=== PATIENT | male | born 1995 | race Caucasian/White ===

== ENCOUNTER 2019-09-20 10:17 | Emergency (ER) | payer OTHER ==
[2019-09-20] MEDS ORDERED: ETOMIDATE INJ/PF 20 MG/10 ML SDV IV ONE (11:28)
--- NOTE | 2019-09-20 11:43 | RADIOLOGY REPORT (SQ) ---
EXAM DESCRIPTION: KUB/ABDOMEN (SINGLE VIEW) IMAGES COMPLETED DATE/TIME: 09/20/2019 11:34 am REASON FOR STUDY: rectal fb COMPARISON: None. NUMBER OF VIEWS: One view. TECHNIQUE: Supine radiographic image of the abdomen acquired. LIMITATIONS: None. FINDINGS: BOWEL GAS PATTERN: Normal bowel gas pattern. No dilated loops. CALCIFICATIONS: No suspicious calcifications. SOFT TISSUES: No gross mass or suggestion of organomegaly. HARDWARE: Large electronic foreign object in the rectum and distal sigmoid. BONES: No acute fracture. No worrisome bone lesions. OTHER: No other significant finding. IMPRESSION: LARGE ELECTRONIC FOREIGN OBJECT IN THE RECTUM AND DISTAL SIGMOID. TECHNICAL DOCUMENTATION: JOB ID: [id number] 2010 [employer]- All Rights Reserved Reading location - IP/workstation name: [email or web address]
[2019-09-20] MEDS ORDERED: NORMAL SALINE 1000 ML 1,000 ML IV ONE (12:00)
[2019-09-20 13:57] VITALS: BP 117/58
--- NOTE | 2019-09-20 19:39 | PDOC CONSULTATION ---
Consultation Consult Date: 09/20/19 Provider Consulted: SURGICAL SURGICALIST MD Consult reason:: Rectal foreign body History of Present Illness Patient complains of: Lodged rectal foreign body History of Present Illness: SAAD PORTILLO JR is a 23 year old male seen in consultation at the request of the emergency room physician. Patient reports a foreign body is currently lodged within his rectum, and has been since last night. He has tried to have a bowel movement, however he has been unsuccessful. He has been unsuccessful at extracting the foreign body at home. He presents today for extraction. The patient denies fevers, chills, nausea, vomiting, abdominal pain, chest pain, shortness of breath, dizziness, orthostasis, fatigue, malaise, blurry vision, dizziness, headache. He does report some pain in the rectum, due to the inability of anyone to extract the foreign body to date. His pain is mild, 2 out of 10. It is an ache. It does not radiate. Nothing makes it better or worse. Past Medical History Medical History: None Past Surgical History Past Surgical History: Reports: None Social History Smoking Status: Current Every Day Smoker Hx Recreational Drug Use: No Hx Prescription Drug Abuse: No Family History Family History: None Parental Family History Reviewed: Yes Children Family History Reviewed: Yes Sibling(s) Family History Reviewed.: Yes Medication/Allergy Allergies/Adverse Reactions: No Known Allergies Allergy (Unverified 09/20/19 10:26) Review of Systems Constitutional: ABSENT: anorexia, chills, fatigue Eyes: ABSENT: visual disturbances Ears: ABSENT: hearing changes Nose, Mouth, and Throat: ABSENT: sore throat Cardiovascular: ABSENT: chest pain Respiratory: ABSENT: cough, dyspnea Gastrointestinal: ABSENT: abdominal pain, bloating, hematemesis, hematochezia, melena, nausea, vomiting Genitourinary: ABSENT: dysuria Musculoskeletal: ABSENT: back pain Integumentary: ABSENT: pruritus, rash Neurological: ABSENT: confusion, convulsions, dizziness Psychiatric: ABSENT: anxiety, depression Endocrine: ABSENT: cold intolerance, heat intolerance Hematologic/Lymphatic: ABSENT: easy bleeding, easy bruising Physical Exam Vital Signs: Temp Pulse Resp BP Pulse Ox 99.4 F 85 19 117/58 L 97 09/20/19 14:20 09/20/19 14:20 09/20/19 14:20 09/20/19 14:09/20/19 14:20 Intake & Output 09/19/19 09/20/19 09/21/19 06:59 06:59 06:59 Intake Total 1000 Balance 1000 Weight 98.1 kg General appearance: PRESENT: no acute distress, cooperative. ABSENT: disheveled Head exam: PRESENT: normocephalic Eye exam: PRESENT: EOMI, PERRLA. ABSENT: scleral icterus Mouth exam: PRESENT: moist, neck supple Neck exam: ABSENT: meningismus, tenderness, thyromegaly, tracheal deviation Respiratory exam: PRESENT: unlabored. ABSENT: chest wall tenderness, tachypnea, wheezes Cardiovascular exam: ABSENT: tachycardia GI/Abdominal exam: PRESENT: soft. ABSENT: distended, firm, rebound, rigid, tenderness Rectal exam: PRESENT: tenderness - Mild tenderness with deep inspection., other - Rectal foreign body felt, proximal to the distal valve of Meng. Extremities exam: ABSENT: clubbing Musculoskeletal exam: ABSENT: deformity Neurological exam: PRESENT: alert, awake, oriented to person, oriented to place, oriented to time, oriented to situation, CN II-XII grossly intact Psychiatric exam: ABSENT: agitated, anxious, depressed Focused psych exam: ABSENT: delusional Skin exam: ABSENT: cyanosis, erythema, jaundice Results Impressions: KUB X-Ray 09/20/19 11:04 IMPRESSION: LARGE ELECTRONIC FOREIGN OBJECT IN THE RECTUM AND DISTAL SIGMOID. Assessment & Plan - Diagnosis (1) Rectal foreign body Qualifiers: Encounter type: initial encounter Qualified Code(s): T18.5XXA - Foreign body in anus and rectum, initial encounter Is this a current diagnosis for this admission?: Yes - Plan Summary Plan Summary: This is a 23-year-old male with a rectal foreign body. It is easily palpable on exam, however it is proximal to the last valve of Meng. I believe the patient can safely undergo bedside extraction with conscious sedation. I discussed this with him at length. He is in agreement with the treatment plan. Risks/benefits discussed, informed consent obtained, and all questions answered.
--- NOTE | 2019-09-20 19:42 | Operative Report ---
Nonrecallable Operative Report DATE OF SURGERY: 09/20/19 PREOPERATIVE DIAGNOSIS: Rectal foreign body, lodged. POSTOPERATIVE DIAGNOSIS: 1. Same as above. 2. Successful extraction of rectal foreign body OPERATION: 1. Rectal examination under conscious sedation. 2. Extraction of rectal foreign body, transanal SURGEON: PAULA HAJI ANESTHESIA: Moderate Sedation - 20 mg of etomidate total TISSUE REMOVED OR ALTERED: Rectal foreign body COMPLICATIONS: None apparent ESTIMATED BLOOD LOSS: Minimal PROCEDURE: Drains/implants: None. Procedure in detail: After informed consent was obtained, the patient was laid in the left lateral decubitus position, with knees to chest. The patient was given 10 mg of etomidate, and then given 10 mg more. Using a rectal retractor and large ringed forceps, the foreign body was identified, grasped, and slowly extracted. The patient did experience some rectal bleeding, however it was minimal and self-limited. Once the foreign body was extracted, the patient promptly awoke from his sedation. He had no significant rectal or lower abdominal pain. At this time the procedure was concluded. All sponge, instrument, and needle counts were correct. Condition: Stable.
--- NOTE | 2019-09-24 09:03 | ER Document Report ---
Entered by YUDI NASCIMENTO SCRIBE 09/20/19 1107 Acting as scribe for:IGOR LUNA DO ED Foreign Body - General Chief Complaint: Rectal Foreign Body Stated Complaint: FOREIGN BODY/RECTAL Time Seen by Provider: 09/20/19 10:54 Primary Care Provider: PAULA SPARKS MD [ACTIVE STAFF] - Follow up as needed Mode of Arrival: Ambulatory Information source: Patient Notes: This 23 year old male patient presents to the emergency department today for concerns of a rectal foreign body. Patient states that at around midnight last night a "sex toy" was inserted in his anus, and it is now stuck. Patient states he has had mild rectal pain since. Patient denies any abdominal pain. Patient has not had a bowel movement since this occurred. TRAVEL OUTSIDE OF THE [place] IN LAST 30 DAYS: No - Related Data Allergies/Adverse Reactions: No Known Allergies Allergy (Unverified 09/20/19 10:26) Past Medical History - General Information source: Patient - Social History Smoking Status: Current Every Day Smoker Cigarette use (# per day): Yes Frequency of alcohol use: None Drug Abuse: None Family History: None Patient has suicidal ideation: No Patient has homicidal ideation: No - Medical History Medical History: Negative Surgical Hx: Negative - Immunizations Hx Diphtheria, Pertussis, Tetanus Vaccination: Yes Review of Systems - Review of Systems Constitutional: No symptoms reported EENT: No symptoms reported Cardiovascular: No symptoms reported Respiratory: No symptoms reported Gastrointestinal: See HPI, Other - Rectal foreign body, mild rectal pain.. denies: Abdominal pain Genitourinary: No symptoms reported Male Genitourinary: No symptoms reported Musculoskeletal: No symptoms reported Skin: No symptoms reported Hematologic/Lymphatic: No symptoms reported Neurological/Psychological: No symptoms reported -: Yes All other systems reviewed and negative Physical Exam - Vital signs Vitals: Temp Pulse Resp BP Pulse Ox 98.4 F 106 H 18 133/81 H 100 09/20/19 10:21 09/20/19 10:21 09/20/19 10:21 09/20/19 10:21 09/20/19 10:21 - Notes Notes: Physical Exam: General: Alert, appears well. HEENT: Normocephalic. Atraumatic. PERRL. Extraocular movements intact. Oropharynx clear. Neck: Supple. Non-tender. Respiratory: No respiratory distress. Clear and equal breath sounds bilaterally. Cardiovascular: Regular rate and rhythm. Abdominal: Normal Inspection. Non-tender. No distension. Normal Bowel Sounds. Rectal: Digital rectal exam performed. Hard foreign body can be palpated minimally, it is far too deep for removal. Back: No gross abnormalities. Extremities: Moves all four extremities. Upper extremities: Normal inspection. Normal ROM. Lower extremities: Normal inspection. No edema. Normal ROM. Neurological: Normal cognition. AAOx4. Normal speech. Psychological: Normal affect. Normal Mood. Skin: Warm. Dry. Normal color. Course - Re-evaluation Re-evalutation: 09/20/19 11:34 MDM 23 year old male with rectal foreign body since midnight last evening. 09/20/19 12:38 I discussed the pt with Dr. Sparks who graciously agreed to come and evaluate the pt in the ED. After etomidate the pt had the rectal fb removed without difficulty. Mild to moderate bleeding without abdominal pain. Pt states "I feel better." - Vital Signs Vital signs: Temp Pulse Resp BP Pulse Ox 99.4 F 85 19 117/58 L 97 09/20/19 14:20 09/20/19 14:20 09/20/19 14:20 09/20/19 14:20 09/20/19 14:20 Discharge - Discharge Clinical Impression: Foreign body, Rectal bleeding Condition: Good Disposition: HOME, SELF-CARE Instructions: Foreign Body ([facility]) Additional Instructions: Do not put objects into your rectum. Rest. If you develop abdominal pain or fever then return here for reevaluation. Your bleeding from the rectum should stop in 1-2 days. Referrals: PAULA SPARKS MD [ACTIVE STAFF] - Follow up as needed I personally performed the services described in the documentation, reviewed and edited the documentation which was dictated to the scribe in my presence, and it accurately records my words and actions.
== END 2019-09-20 14:10 | disposition home or self-care (01) ==
LOC: ER 10:17
PROC: 0DCP7ZZ Extirpation of Matter from Rectum, Via Natural or Artificial Opening (ICD-10-PCS; principal; 2019-09-20)
DX: T18.5XXA Foreign body in anus and rectum, initial encounter (principal); K62.89 Other specified diseases of anus and rectum; X58.XXXA Exposure to other specified factors, initial encounter; F17.210 Nicotine dependence, cigarettes, uncomplicated
CPT/HCPCS: 45999; 99284; 74018; J7030; J3490